=== PATIENT | male | born 1960 | race Caucasian/White ===

== ENCOUNTER 2016-10-16 06:18 | Day surgery (SDC) | payer BC ==
--- NOTE | 2016-10-15 18:30 | Pre-Procedure Note/Attestation ---
Pre-Procedure Note/Attestation Complete Prior to Procedure Planned Procedure: bilateral Procedure Narrative: Bilateral submucous resection inferior turbinates. Indications for Procedure Pre-Operative Diagnosis: Bilateral hypertrophied inferior turbinates Attestation I attest that I discussed the nature of the procedure; its benefits; risks and complications; and alternatives (and the risks and benefits of such alternatives ), prior to the procedure, with the patient (or the patient's legal food service sales representatives). I attest that, if there was a reasonable possibility of needing a blood transfusion, the patient (or the patient's legal food service sales representatives) was given the [facility] standardized written summary, pursuant to the Rodney Julio Blood Safety Act ([place] Health and Safety Code # 1645, as amended). I attest that I re-evaluated the patient just prior to the surgery and that there has been no change in the patient's H&P,Provided by PMD and faxed over last week to pre op area. STEVE CONNELLY Oct 15, 2016 18:30
[2016-10-16] VITALS (9 sets, daily range): BP systolic 120–153; BP diastolic 73–98
[~2016-10-16] VITALS: Ht 193 cm; Wt 108.4 kg
--- NOTE | 2016-10-16 07:02 | Anethesia Preoperative Eval ---
Anesthesia Pre-op PMH/ROS General Date of Evaluation: Oct 16, 2016 Anesthesiologist: Trevor ASA Score: ASA 2 Mallampati Score Class I : Soft palate, uvula, fauces, pillars visible Class II: Soft palate, uvula, fauces visible Class III: Soft palate, base of uvula visible Class IV: Only hard plate visible Mallampati Classification: Class III Surgeon: Enzo Diagnosis: Hypertrophied TURBS Surgical Procedure: SMR TURBS Anesthesia History: none Family History: no anesthesia problems Allergies: Coded Allergies: No Known Allergies (Unverified , 10/15/16) Medications: see eMAR Past Medical History Cardiovascular: Denies: CAD, HTN, [place], arrhythmia, other, valve dz Pulmonary: Denies: COPD, MAXIMILIANO, asthma, other Gastrointestinal/Genitourinary: Reports: GERD, Denies: CRI, ESRD, other Neurologic/Psychiatric: Reports: depression/anxiety, Denies: CVA, TIA, dementia, other Endocrine: Reports: hypothyroidism, Denies: DM, other, steroids HEENT: Denies: [place]IND[place]ONE (L), GRINDSTONE (R), cataract (L), cataract (R), glaucoma, other Hematology/Immune: Reports: other - HIV, Denies: DVT, anemia, bleeding disorder Musculoskeletal/Integumentary: Denies: DDD, DJD, OA, RA, edema, other Other: obesity PSxH Narrative: turbinates surgery, right eye sx, mastoidectomy Anesthesia Pre-op Phys. Exam Physician Exam see chart Constitutional: NAD Cardiovascular: RRR Respiratory: CTA Airway Exam Mallampati Score: Class III MO: limited ROM: limited Teeth: intact Anesthesia Pre-op A/P Labs see chart Studies Pre-op Studies: EKG - sr Risk Assessment & Plan Assessment: ASA II Plan: GA Status Change Before Surgery: No Pre-Antibiotics Drug: Ancef 2g Given Within 1 Hr of Incision: Yes SABINA DUMONT M.D. Oct 16, 2016 07:02
[2016-10-16] MEDS ORDERED: TRUVADA1 TAB ORAL (07:50)
[2016-10-16] MEDS ORDERED: BUPROPION XL300 MG ORAL (07:55)
[2016-10-16] MEDS ORDERED: VALIUM10 MG ORAL (07:55)
--- NOTE | 2016-10-16 08:04 | Immediate Post-Op Evaluation ---
Immediate Post-Op Evalulation Immediate Post-Op Evalulation Procedure: TURBS Date of Evaluation: Oct 16, 2016 Time of Evaluation: 09:32 IV Fluids: 500 Blood Products: 0 Estimated Blood Loss: 5 Urinary Output: 0 Blood Pressure Systolic: 151 Blood Pressure Diastolic: 79 Pulse Rate: 89 Respiratory Rate: 16 O2 Sat by Pulse Oximetry: 100 Temperature (Fahrenheit): 97.6 Pain Score (1-10): 0 Nausea: No Vomiting: No Complications 0 Patient Status: awake, reacts, patent, none Hydration Status: adequate Drug: Ancef 2g Given Within 1 Hr of Incision: Yes Time Given: 08:55 SABINA DUMONT M.D. Oct 16, 2016 08:04
[2016-10-16] MEDS ORDERED: LR 1000ml 1,000 ML IVLG SCH (08:05)
--- NOTE | 2016-10-16 08:05 | 48 Hour Post Anesthesia Eval ---
Post Anesthesia Evaluation Procedure: TURBS Date of Evaluation: Oct 16, 2016 Time of Evaluation: 10:30 Blood Pressure Systolic: 120 0: 73 Pulse Rate: 78 Respiratory Rate: 17 Temperature (Fahrenheit): 97.5 O2 Sat by Pulse Oximetry: 98 Airway: patent Nausea: No Vomiting: No Pain Intensity: 0 Hydration Status: adequate Cardiopulmonary Status: at baseline Mental Status/LOC: patient returned to baseline Post-Anesthesia Complications: 0 Follow-up care needed: ready to discharge SABINA DUMONT M.D. Oct 16, 2016 08:05
[2016-10-16] MEDS ORDERED: LORazepam Inj 2mg/ml 1ml IV PRN (08:15)
[2016-10-16] MEDS ORDERED: Metoclopramide 10mg/2ml Inj IVP PRN ×2 (08:15→09:30)
[2016-10-16] MEDS ORDERED: Hydromorphone 0.5mg/0.5ml inj IVP PRN (08:15)
[2016-10-16] MEDS ORDERED: Midazolam 2mg/2ml Inj IVP PRN (08:15)
[2016-10-16] MEDS ORDERED: fentaNYL 100 mcg/2 mL IV PRN (08:15)
[2016-10-16] MEDS ORDERED: DiphenhydrAMINE 50mg/ml Inj IVP PRN (08:15)
[2016-10-16] MEDS ORDERED: Bupivacaine w/Epi 0.5% 30ml Vial INJ ONE (08:38)
[2016-10-16] MEDS ORDERED: Cocaine 4% Vial TOPIC ONE (08:38)
[2016-10-16] MEDS ORDERED: Lidocaine 1% 10mg/ml/Epi 0.005mg/ml 30ml vial INJ ONE (08:38)
[2016-10-16] MEDS ORDERED: NS Irrig 1000ml ONE (09:00)
[2016-10-16] MEDS ORDERED: Lidocaine 1% MPF 10mg/ml 5ml ONE (09:00)
[2016-10-16] MEDS ORDERED: Propofol 10mg/ml 20ml IV ONE (09:00)
[2016-10-16] MEDS ORDERED: Midazolam 2mg/2ml Inj ONE (09:00)
[2016-10-16] MEDS ORDERED: fentaNYL 100 mcg/2 mL IV ONE (09:00)
[2016-10-16] MEDS ORDERED: Sterile Water Irrig 1000ml IRRIG ONE (09:00)
[2016-10-16] MEDS ORDERED: LR 1000ml ONE (09:00)
[2016-10-16] MEDS ORDERED: Bacitracin Oint 15gm Tube TOPIC ONE (09:16)
--- NOTE | 2016-10-16 09:25 | Brief Operative Note ---
Immediate Post Operative Note Operative Note Pre-op Diagnosis: Bilateral hypertrophied inferior turbinates Procedure: Bilateral submucous resection inferior turbinates Post-op Diagnosis: same as pre-op Surgeon: Steve Connelly Field Aide: none Additional Surgeons: none Anesthesiologist: Sathya Anesthesia: general Specimen: none Complications: none Condition: stable Estimated Blood Loss: volume - 5 cc Packing: none Implant(s) used?: No STEVE CONNELLY Oct 16, 2016 09:25
[2016-10-16] MEDS ORDERED: AMOXICILLIN500 MG ORAL (09:27)
[2016-10-16] MEDS ORDERED: NORCO 5-325 TA1 EAC1 ORAL (09:27)
--- NOTE | 2016-10-16 09:29 | Discharge Instructions ---
Discharge Instructions Discharge Instructions Follow up with: Dr. Connelly in his office next week-pt already has scheduled appt. Resume Normal Activity?: No Activity: light activity Pneumonia Vaccine: pt refused vaccine Influenza Vaccine (Nov to Apr): pt refused vaccine Follow Up Orders Pt has printed instructions that were reviewed and given to him during his pre op visit. Return to Work/School on: Oct 30, 2016 Special Instructions ice to face x 48 hours For Surgical Patients Dressing Care: may change Contact your physician for: bleeding, tenderness, redness, swelling, yellowish discharge in the op. site For Congestive Heart Failure Reminder Report to your physician any weight gain of 5 pounds or more in one week. STEVE CONNELLY Oct 16, 2016 09:29
[2016-10-16] MEDS ORDERED: Norco 5mg/325mg tab ORAL PRN (09:30)
[2016-10-16] MEDS ORDERED: HYDROmorphone 1mg/ml Carpuject SUBQ PRN (09:30)
--- NOTE | 2016-10-16 21:45 | Operative Note - Dictated ---
DATE OF OPERATION: 10/16/2016 SURGEON: Kristian Giraldo M.D. CERTIFIED REHABILITATION COUNSELOR: None. ANESTHESIOLOGIST: Dr. Tijerina. Anesthesia: LMA general anesthesia as well as 10 mL of a 50:50 mixture of 1% lidocaine with 1:100,000 epinephrine and Sensorcaine 0.5% with 1:200,000 epinephrine. Please also note that 4 mL of 4% topical cocaine were placed on 4 nasal pledgets, 2 in either nostril, which were accounted for at the end of the case. INDICATION FOR SURGERY: Hypertrophied bilateral inferior turbinates causing airway obstruction, which has not responded to nasal steroids or antihistamines. PREOPERATIVE DIAGNOSIS: Bilateral hypertrophied right and left inferior turbinates. POSTOPERATIVE DIAGNOSIS: Bilateral hypertrophied right and left inferior turbinates. FINDINGS: Bilateral hypertrophied right and left inferior turbinates. PROCEDURE: Bilateral submucous resection, inferior turbinates. TECHNIQUE: The patient prepped and draped in the usual manner. Time-out was performed. All agreed as to the equipment and procedures to be done. I injected the inferior turbinates with the aforementioned lidocaine, Marcaine, and epinephrine mixture. A 5 mL of the total mixture in either turbinate. Topical cocaine was placed on the 4 nasal pledgets, 2 in either nostril, again accounted for at the end of the case. I addressed the right inferior turbinate first making a small incision anterior inferiorly and coating the 45 radiofrequency blade with saline gel. It was placed twice into the inferior turbinate submucosally for a count of 10 seconds going back as I can over the course of 10 seconds. Then outfractured with a Boies elevator. The same procedure was followed for the left inferior turbinate. I then proceeded to place antibiotic ointment over the 2 small sticks in the incision in inferior turbinate on either side. Mustache dressing was placed. Sponge and needle count was correct. ESTIMATED BLOOD LOSS: 5 mL. COUNTS: None. DRAINS: None. Kristian Giraldo M.D. DR: BRUNO JOB#: [id number] CC:
[2016-10-17 19:23] VITALS: BP 120/73
== END 2016-10-16 11:05 | disposition home or self-care (01) ==
LOC: SUR 06:18
DX: J34.3 Hypertrophy of nasal turbinates (principal); K21.9 Gastro-esophageal reflux disease without esophagitis; E03.9 Hypothyroidism, unspecified; E66.9 Obesity, unspecified; F32.9 Major depressive disorder, single episode, unspecified; F41.9 Anxiety disorder, unspecified; R64 Cachexia; G47.00 Insomnia, unspecified; E78.5 Hyperlipidemia, unspecified; E29.1 Testicular hypofunction; E55.9 Vitamin D deficiency, unspecified; J30.9 Allergic rhinitis, unspecified; B00.9 Herpesviral infection, unspecified; Z86.19 Personal history of other infectious and parasitic diseases; Z88.6 Allergy status to analgesic agent
CPT/HCPCS: 30140; J0690; J2250; J2405; J2704; J3010; J7120; 94003; 94150